=== PATIENT | male | born 1995 | race Caucasian/White ===

== ENCOUNTER 2018-12-07 23:02 | Emergency (ER) | payer MEDICAID ==
[~2018-12-07] VITALS: Ht 188 cm; Wt 113.6 kg
[2018-12-07 23:39] VITALS: Ht 188 cm; Wt 113.6 kg
[2018-12-07] MEDS ORDERED: CORTEF10 MG PO (23:40)
[2018-12-07] MEDS ORDERED: SYNTHROID150 MCG PO (23:40)
[2018-12-07] MEDS ORDERED: DDAVP0.1 MG PO (23:40)
[2018-12-07] MEDS ORDERED: CORTEF 5 MG TAB5 MG PO (23:41)
[2018-12-08] MEDS ORDERED: DDAVP0.1 MG PO (00:45)
[2018-12-08 00:54] VITALS: BP 119/76
== END 2018-12-08 00:54 | disposition home or self-care (01) ==
LOC: D.ER 23:02
DX: Z76.0 Encounter for issue of repeat prescription (principal)